=== PATIENT | female | born 1945 | race Caucasian/White ===

== ENCOUNTER 2017-09-21 08:02 | Inpatient (IN) | payer MEDICARE ==
[~2017-09-21] VITALS: Ht 170.2 cm; Wt 49.9 kg
[2017-09-21 08:05] VITALS: BP 154/92; PULSE 102; RESP 16; TEMP 98.5; O2SAT 99
[2017-09-21] MEDS ORDERED: VENL150T PO (08:24)
[2017-09-21] MEDS ORDERED: LORA0.5T PO (08:24)
[2017-09-21] MEDS ORDERED: MIRTA15 PO (08:24)
[2017-09-21] MEDS ORDERED: QUET1TAB8 PO (08:24)
--- NOTE | 2017-09-21 08:31 | PD ---
HPI Chief Complaint: Medical Clearance Time Seen by Provider: 08:10 Travel History International Travel<30 days: No Contact w/Intl Traveler<30days: No Traveled to known affect area: No History of Present Illness HPI The patient is a 72-year-old female who presents to the emergency department with her for psychiatric evaluation. The patient has a history of major depression with catatonia, started in the with another episode in the . According to the the patient did place a gun to her neck back in the , however, after treatment at that time she was well for several years. However, the patient's brother recently from possible alcoholism over the summer and she recently went to [place], [place], to see her daughter who is suffering from depression. These events apparently triggered another episode of major depression and the patient was hospitalized for psychiatric reasons in [place], [place]. The patient had a thorough workup according to the including CAT scan, thyroid studies, and lab work to rule out other etiologies. The patient was treated by a psychiatrist and was eventually released from the hospital. However, the states the patient continues to lose weight, has not been eating, sleeping, and is having delusions. The states the patient is delusional at times about the neighbor's pit bull dogs next-door as well as possible "hacking "into their bank and credit cards. The patient does believe that people are hacking her credit cards and also believes that the pit bulls next door are a threat. She does note trouble pain. Symptoms are moderate, similar to previous episodes of depression with catatonia, and there are no current alleviating factors. She denies current suicidal ideation, does know angry at times, but denies any homicidal ideation. She denies any auditory or visual hallucinations. PFSH Past Medical History Narrative Medical Major depression Past Surgical History Narrative Surgical Noncontributory Social History Tobacco Use: No Allergies-Medications (Allergen,Severity, Reaction): Coded Allergies: No Known Allergies (Verified Allergy, Unknown, 09/21/17) Reported Meds & Prescriptions Reported Meds & Active Scripts Active Reported Mirtazapine 15 Mg Tab 15 Mg PO HS Lorazepam 0.5 Mg Tab 0.5 Mg PO Q8H PRN Venlafaxine ER 24 HR (Venlafaxine HCl) 150 Mg Tab 150 Mg PO DAILY Quetiapine (Quetiapine Fumarate) 100 Mg Tab 100 Mg PO HS Review of Systems Except as stated in HPI: all other systems reviewed are Neg General / Constitutional: Positive: Weight Loss, No: Fever Cardiovascular: No: Chest Pain or Discomfort Respiratory: No: Shortness of Breath Gastrointestinal: Positive: Loss of Appetite, No: Nausea, Vomiting, Abdominal Pain Psychiatric: Positive: Depression, No: Suicidal Ideations, Substance Abuse, Homicidal Ideation Physical Exam Narrative GENERAL: 72-year-old female appears her stated age is in no acute respiratory distress. SKIN: Focused skin assessment warm/dry. HEAD: Atraumatic. Normocephalic. EYES: Pupils equal and round. 4 mm bilateral and reactive. Patient is wearing glasses. ENT: No nasal bleeding or discharge. Slightly dry mucous membranes.. NECK: Trachea midline. No JVD. CARDIOVASCULAR: Regular rate and rhythm. No murmur appreciated. Heart rate in the 90s. RESPIRATORY: No accessory muscle use. Clear to auscultation. Breath sounds equal bilaterally. GASTROINTESTINAL: Abdomen soft, non-tender, nondistended. No rebound tenderness. MUSCULOSKELETAL: No obvious deformities. No clubbing. No cyanosis. No edema. NEUROLOGICAL: Awake and alert. No obvious cranial nerve deficits. Motor grossly within normal limits. Normal speech. Nonfocal. PSYCHIATRIC: Flat affect, avoids eye contact. Insight and judgment appear normal. Data Data Last Documented VS Vital Signs Date Time Temp Pulse Resp B/P (MAP) Pulse Ox O2 Delivery O2 Flow Rate FiO2 09/21/17 08:05 98.5 102 16 154/92 (112) 99 Orders Orders Complete Blood Count With Diff (09/21/17 08:26) Comprehensive Metabolic Panel (09/21/17 08:26) Thyroid Stimulating Hormone (09/21/17 08:26) Urinalysis - C+S If Indicated (09/21/17 08:26) Psych Screen (09/21/17 08:26) Drug Screen, Random Urine (09/21/17 08:26) Labs Laboratory Tests Test 09/21/17 08:45 White Blood Count 2.9 TH/MM3 Red Blood Count 4.71 MIL/MM3 Hemoglobin 14.1 GM/DL Hematocrit 41.6 % Mean Corpuscular Volume 88.4 FL Mean Corpuscular Hemoglobin 29.9 PG Mean Corpuscular Hemoglobin Concent 33.8 % Red Cell Distribution Width 13.3 % Platelet Count 183 TH/MM3 Mean Platelet Volume 8.8 FL Neutrophils (%) (Auto) 67.2 % Lymphocytes (%) (Auto) 21.6 % Monocytes (%) (Auto) 9.4 % Eosinophils (%) (Auto) 1.1 % Basophils (%) (Auto) 0.7 % Neutrophils # (Auto) 2.0 TH/MM3 Lymphocytes # (Auto) 0.6 TH/MM3 Monocytes # (Auto) 0.3 TH/MM3 Eosinophils # (Auto) 0.0 TH/MM3 Basophils # (Auto) 0.0 TH/MM3 CBC Comment DIFF FINAL Differential Comment Blood Urea Nitrogen 10 MG/DL Creatinine 0.61 MG/DL Random Glucose 101 MG/DL Total Protein 6.8 GM/DL Albumin 3.6 GM/DL Calcium Level 9.0 MG/DL Alkaline Phosphatase 89 U/L Aspartate Amino Transf (AST/SGOT) 34 U/L Alanine Aminotransferase (ALT/SGPT) 24 U/L Total Bilirubin 0.5 MG/DL Sodium Level 141 MEQ/L Potassium Level 3.4 MEQ/L Chloride Level 105 MEQ/L Carbon Dioxide Level 24.4 MEQ/L Anion Gap 12 MEQ/L Estimat Glomerular Filtration Rate 97 ML/MIN Thyroid Stimulating Hormone 3rd Gen 2.880 uIU/ML MDM Medical Decision Making Medical Screen Exam Complete: Yes Emergency Medical Condition: Yes Medical Record Reviewed: Yes Interpretation(s) Laboratory Tests Test 09/21/17 08:45 White Blood Count 2.9 TH/MM3 Red Blood Count 4.71 MIL/MM3 Hemoglobin 14.1 GM/DL Hematocrit 41.6 % Mean Corpuscular Volume 88.4 FL Mean Corpuscular Hemoglobin 29.9 PG Mean Corpuscular Hemoglobin Concent 33.8 % Red Cell Distribution Width 13.3 % Platelet Count 183 TH/MM3 Mean Platelet Volume 8.8 FL Neutrophils (%) (Auto) 67.2 % Lymphocytes (%) (Auto) 21.6 % Monocytes (%) (Auto) 9.4 % Eosinophils (%) (Auto) 1.1 % Basophils (%) (Auto) 0.7 % Neutrophils # (Auto) 2.0 TH/MM3 Lymphocytes # (Auto) 0.6 TH/MM3 Monocytes # (Auto) 0.3 TH/MM3 Eosinophils # (Auto) 0.0 TH/MM3 Basophils # (Auto) 0.0 TH/MM3 CBC Comment DIFF FINAL Differential Comment Blood Urea Nitrogen 10 MG/DL Creatinine 0.61 MG/DL Random Glucose 101 MG/DL Total Protein 6.8 GM/DL Albumin 3.6 GM/DL Calcium Level 9.0 MG/DL Alkaline Phosphatase 89 U/L Aspartate Amino Transf (AST/SGOT) 34 U/L Alanine Aminotransferase (ALT/SGPT) 24 U/L Total Bilirubin 0.5 MG/DL Sodium Level 141 MEQ/L Potassium Level 3.4 MEQ/L Chloride Level 105 MEQ/L Carbon Dioxide Level 24.4 MEQ/L Anion Gap 12 MEQ/L Estimat Glomerular Filtration Rate 97 ML/MIN Thyroid Stimulating Hormone 3rd Gen 2.880 uIU/ML Differential Diagnosis Differential diagnosis includes major depression, psychosis, bipolar affective disorder, schizoaffective disorder, hyperthyroidism, hypothyroidism, dehydration. Narrative Course Labs are drawn and sent. Psychiatric evaluation was ordered. TSH was within normal limits. Sodium is unremarkable. The patient medically clear to be evaluated by psychiatry. Disposition as per psych. Diagnosis Primary Impression: Major depressive disorder Condition: Stable Darian Pulido MD Sep 21, 2017 08:31
[2017-09-21 09:00] LABS: BASOPHIL % 0.7 % (0.0-2.0); EOSINOPHIL % 1.1 % (0.0-4.0); HEMATOCRIT 41.6 % (35.0-46.0); HEMOGLOBIN 14.1 GM/DL (11.6-15.3); LYMPH % 21.6 % (9.0-44.0); LYMPHOCYTE # 0.6 TH/MM3 (1.0-4.8); MEAN CELL VOLUME 88.4 FL (80.0-100.0); MEAN CORPUSCULAR HEMOGLOBIN 29.9 PG (27.0-34.0); MEAN CORPUSCULAR HGB CONC 33.8 % (32.0-36.0); MEAN PLATELET VOLUME 8.8 FL (7.0-11.0); MONO % 9.4 % (0.0-8.0); MONOCYTE # 0.3 TH/MM3 (0-0.9); NEUT % 67.2 % (16.0-70.0); PLATELET COUNT 183 TH/MM3 (150-450); RED BLOOD COUNT 4.71 MIL/MM3 (4.00-5.30); RED CELL DISTRIBUTION WIDTH 13.3 % (11.6-17.2); WHITE BLOOD COUNT 2.9 TH/MM3 (4.0-11.0)
[2017-09-21 09:18] LABS: ALBUMIN 3.6 GM/DL (3.4-5.0); AST (GOT) 34 U/L (15-37); BICARBONATE 24.4 MEQ/L (21.0-32.0); BLOOD UREA NITROGEN 10 MG/DL (7-18); CHLORIDE 105 MEQ/L (98-107); CREATININE 0.61 MG/DL (0.50-1.00); GLOMERULAR FILTRATION RATE 97 ML/MIN (>89); GLUCOSE,RANDOM 101 MG/DL (74-106); SODIUM (NA) 141 MEQ/L (136-145)
[2017-09-21 09:19] LABS: ALT (GPT) 24 U/L (10-53)
[2017-09-21 09:28] LABS: ALKALINE PHOSPHATASE 89 U/L (45-117); TOTAL BILIRUBIN ADULT 0.5 MG/DL (0.2-1.0); TOTAL PROTEIN 6.8 GM/DL (6.4-8.2)
[2017-09-21] MEDS ORDERED: LORazepam 1 MG TAB PO PRN (10:00)
[2017-09-21] MEDS ORDERED: LORazepam 2 MG/ML VIAL IM PRN (10:00)
[2017-09-21] MEDS ORDERED: ALUMINUM/MAGNESIUM/SIMETH 30 ML CUP PO PRN (10:00)
[2017-09-21] MEDS ORDERED: ACETAMINOPHEN 325 MG TAB PO PRN (10:00)
[2017-09-21] MEDS ORDERED: MAGNESIUM HYDROXIDE SUSP 30 ML CUP PO PRN (10:00)
--- NOTE | 2017-09-21 10:34 | HHI.HP ---
Provisional Diagnosis Admission Date Sep 21, 2017 at 09:57 [place] I. Major depression with psychotic features Certification of Person's Competence To Provide Express and Informed Consent I have personally examined Nuris Gasca , a person being served at [facility] on, Sep 21, 2017 10:21. Express and informed consent means consent voluntarily given in writing, by a competent person, after sufficient explanation and disclosure of the subject matter involved to enable the person to make a knowing and willful decision without any element of force, fraud, deceit, duress, or other form of constraint or coercion. This person is 18 years of age or older, is not now known to be incompetent to consent to treatment with a guardian advocate, and does not have a health care surrogate or proxy currently making medical treatment decisions. I have found this person to be one of the following: [] Competent to provide express and informed consent, as defined above, for voluntary admission to this facility and is competent to provide express and informed consent for treatment. He/she has the consistent capacity to make well reasoned, willful, and knowing decisions concerning his or her medical or mental health treatment. The person fully and consistently understands the purpose of the admission for examination/placement and is fully capable of personally exercising all rights [place] [x] Incompetent to provide express and informed consent to voluntary admission, and this is incompetent to provide express and informed consent to treatment. The person must be transferred to involuntary status and a petition for a guardian advocate filed with the Circuit Court. [] Refusing to provide express and informed consent to voluntary admission but is competent to provide express and informed consent for treatment. The person must be discharged or transferred to involuntary status. Form shall be completed within 24 hours of a person's arrival at the receiving facility and filed in the clinical record of each person: 1. Admitted on a voluntary basis 2. Permitted to provide express and informed consent to his/her own treatment 3. Allowed to transfer from involuntary to voluntary status 4. Prior to permitting a person to consent to his or her own treatment after having been previously found incompetent to consent to treatment. History of Present Illness Capacity: Lacks Capacity HPI 72-year-old female Lee acted by this physician with obvious major depression and psychotic features. 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 He is aware of the patient's condition as they have been for 48 years and she required ECT approximately 25 years ago. Currently, the patient has experienced a 40 pound weight loss, is delusional and believes they have no money, no Medicare and someone has hacked their computer system. She does not eat food very well and does not drink much liquid. In addition to a markedly depressed mood, she has anxiety, anhedonia, social withdrawal, poverty of speech, insomnia, loss of appetite, concentration difficulty, etc. She is somewhat oppositional as a result of her depression with psychotic features and has even been described as approaching catatonia. She does not have a history of alcoholism or substance abuse. She has had multiple stressors in the last year, including a major depressive event with her daughter and the loss of her brother, while he resided in a homeless senior care. Review of Systems ROS Limitations: Clinical Condition Psychiatric: COMPLAINS OF: Anxiety, Mood changes, Delusions Except as stated in HPI: all other systems reviewed are Neg Past Psych History Psychological trauma history No known significant history of psychological trauma other than stressors described above. Has been treated for serious depressive episodes years ago, including the ECT. She did respond to electroconvulsive therapy. Violence risk - others (6 mos) Minimal Violence risk - self (6 mos) Moderate to high. Substance Abuse History Drugs/Alcohol past 12 months Denied Past Family Social History Coded Allergies: No Known Allergies (Verified Allergy, Unknown, 09/21/17) Reported Medications Mirtazapine (Mirtazapine) 15 Mg Tab, 15 MG PO HS for Depression Control, #30 TAB 0 Refills 09/21/17 Lorazepam (Lorazepam) 0.5 Mg Tab, 0.5 MG PO Q8H Y for ANXIETY, TAB 0 Refills 09/21/17 Venlafaxine ER 24 HR (Venlafaxine ER 24 HR) 150 Mg Tab, 150 MG PO DAILY, #30 TAB 0 Refills 09/21/17 Quetiapine (Quetiapine) 100 Mg Tab, 100 MG PO HS, #30 TAB 0 Refills 09/21/17 Current Medications Medications (Trade) Dose Ordered Sig/César Route Start Time Stop Time Status Last Admin (Ativan) 1 mg Q6H PRN PO 09/21/17 10:00 (Ativan Inj) 1 mg Q6H PRN IM 09/21/17 10:00 (Tylenol) 650 mg Q4H PRN PO 09/21/17 10:00 (Milk Of Magnesia Liq) 30 ml DAILY PRN PO 09/21/17 10:00 (Mag-Al Plus Susp Liq) 30 ml Q6H PRN PO 09/21/17 10:00 (Remeron) 15 mg HS PO 09/21/17 21:00 (SEROquel) 100 mg HS PO 09/21/17 21:00 Family Psych History Positive for mood disorders and possible bipolar disorder. Social History for 48 years. very supportive and knowledgeable about psychiatry as he has been [employer] act financial services director at this facility in the past. They have one daughter that lives in the [place] area who has experienced depressive episodes and they believe may be bipolar. Patient does not have a history of alcoholism or substance abuse. She is not employed at this time. Patient's Strengths (min. 2) Supportive family. Has access to healthcare. Physical Exam GENERAL: SKIN: Warm and dry. HEAD: Normocephalic. EYES: No scleral icterus. No injection or drainage. NECK: Supple, trachea midline. No JVD or lymphadenopathy. CARDIOVASCULAR: Regular rate and rhythm without murmurs, gallops, or rubs. RESPIRATORY: Breath sounds equal bilaterally. No accessory muscle use. GASTROINTESTINAL: Abdomen soft, non-tender, nondistended. MUSCULOSKELETAL: No cyanosis, or edema. BACK: Nontender without obvious deformity. No CVA tenderness. Vital Signs Vital Signs Date Time Temp Pulse Resp B/P (MAP) Pulse Ox O2 Delivery O2 Flow Rate FiO2 09/21/17 08:05 98.5 102 16 154/92 (112) 99 Lab Results Test 09/21/17 08:45 White Blood Count 2.9 TH/MM3 Red Blood Count 4.71 MIL/MM3 Hemoglobin 14.1 GM/DL Hematocrit 41.6 % Mean Corpuscular Volume 88.4 FL Mean Corpuscular Hemoglobin 29.9 PG Mean Corpuscular Hemoglobin Concent 33.8 % Red Cell Distribution Width 13.3 % Platelet Count 183 TH/MM3 Mean Platelet Volume 8.8 FL Neutrophils (%) (Auto) 67.2 % Lymphocytes (%) (Auto) 21.6 % Monocytes (%) (Auto) 9.4 % Eosinophils (%) (Auto) 1.1 % Basophils (%) (Auto) 0.7 % Neutrophils # (Auto) 2.0 TH/MM3 Lymphocytes # (Auto) 0.6 TH/MM3 Monocytes # (Auto) 0.3 TH/MM3 Eosinophils # (Auto) 0.0 TH/MM3 Basophils # (Auto) 0.0 TH/MM3 CBC Comment DIFF FINAL Differential Comment Blood Urea Nitrogen 10 MG/DL Creatinine 0.61 MG/DL Random Glucose 101 MG/DL Total Protein 6.8 GM/DL Albumin 3.6 GM/DL Calcium Level 9.0 MG/DL Alkaline Phosphatase 89 U/L Aspartate Amino Transf (AST/SGOT) 34 U/L Alanine Aminotransferase (ALT/SGPT) 24 U/L Total Bilirubin 0.5 MG/DL Sodium Level 141 MEQ/L Potassium Level 3.4 MEQ/L Chloride Level 105 MEQ/L Carbon Dioxide Level 24.4 MEQ/L Anion Gap 12 MEQ/L Estimat Glomerular Filtration Rate 97 ML/MIN Thyroid Stimulating Hormone 3rd Gen 2.880 uIU/ML Mental Status Examination Appearance: Other Consciousness: Alert Orientation: Person, Place Motor Activity: Normal gait Speech: Hesitant Language: Adequate Fund of Knowledge: Adequate Attention and Concentration: Inadequate Memory: Impaired Mood: Oppositional Affect: Blunt Thought Process & Associations: Circumstantial, Tangential Thought Content: Bizarre thinking, Delusional Hallucination Type: None Delusion Type: Paranoid Suicidal Ideation: No Suicidal Plan: No Suicidal Intention: No Homicidal Ideation: No Homicidal Plan: No Homicidal Intention: No Insight: Poor Judgment: Poor Assessment & Plan Problem List: (1) Major depressive disorder, recurrent episode with mood-congruent psychotic features ICD Codes: F33.3 - Major depressive disorder, recurrent, severe with psychotic symptoms Assessment & Plan Estimated LOS: days. 72-year-old female Lee acted by this physician for major depressive symptoms with psychotic delusions. Patient not eating or drinking adequately and has experienced 40 pound weight loss over the last year. She is obviously unable to care for herself and due to her advanced age, remains susceptible to electrolyte disturbances, cardiac dysrhythmias, sudden , etc. For this reason she is being admitted for further evaluation and treatment. Patient was also recently admitted to [facility] [place] with minimal to no improvement. This physician is ordering a CBC and comprehensive metabolic panel to determine if any infectious process or metabolic process is causing or contributing to the patient's depression and psychosis. Conversely, this physician is concerned about any electrolyte disturbances, etc. which might be the result of the patient's depression and psychosis. Also ordered are thyroid stimulating hormone level, vitamin B-12 and vitamin D levels as deficiencies in these areas can cause or contribute to the patient's depression and psychosis. This physician has also ordered a hospitalist consult to assist with evaluating and treating the patient's malnourished physical state. An EKG has been ordered to assess the patient's cardiac conduction status, which can be adversely affected by her lack of nutrition, psychotropic medicines, etc. and will possibly be at risk with the future use of psychotropic medicines. This physician spoke with the patient's nurse regarding her current condition. Finally, case management will also be involved to assist with further information gathering and disposition planning. Carroll Frederick MD Sep 21, 2017 10:34
[2017-09-21 11:14] VITALS: BP 145/76; PULSE 90; RESP 18; O2SAT 99
[2017-09-21 11:50] LABS: BILIRUBIN, URINE NEG (NEG); BLOOD, URINE NEG (NEG); GLUCOSE,URINE NEG (NEG); KETONE, URINE 40 mg/dL (NEG); MUCUS URINE FEW /lpf (OCC); NITRITE,URINE NEG (NEG); PH, URINE 7.5 (5.0-8.5); RENAL EPITHELIAL CELLS <1 /hpf; SQUAMOUS EPITHELIAL CELL URINE <1 /hpf (0-5); URINE COLOR LIGHT-YELLOW (YELLW/STRAW); URINE LEUKOCYTE ESTERASE NEG (NEG)
[2017-09-21 13:41] VITALS: BP 144/70; PULSE 79; RESP 18; TEMP 98.2; O2SAT 99
[2017-09-21] MEDS ORDERED: POTASSIUM CHLORIDE 20 MEQ CONTROLLED RELEASE TAB PO ONE (15:30)
--- NOTE | 2017-09-21 15:54 | PD.CONS ---
HPI Service [facility] Consult Requested By Psychiatry service Reason for Consult Poor by mouth intake weight loss Primary Care Physician No Primary Care Physician Diagnoses: History of Present Illness Patient is a 72-year-old female with questionable history of hypertension, depression was brought in here by and admitted under medicine like services because of depression. There is no family member at bedside. Patient appears blunted in affect. Review of ER report on admission evaluation reveals history of depression with previous history of suicidal attempt prior hospitalizations in other psychiatric facility. His admission recently triggered by few deaths in the family. On further discussion with the staff nurse was admitted in another facility a few weeks ago with depression and poor by mouth intake. There was a report about her being constipated. Apparently was manually disimpacted in other facility. When asked about this patient does not recall having had a colonoscopy done. She denies any abdominal pain nausea and vomiting. She just feels that she's being kept here against her will and this is "inhumane ". Patient denies any fever nausea or vomiting[facility] poor by mouth intake and weight loss. Review of Systems Constitutional: DENIES: Diaphoretic episodes, Fatigue, Fever, Weight gain, Weight loss, Chills, Dizziness, Change in appetite, Night Sweats Endocrine: DENIES: Abnorml menstrual pattern, Heat/cold intolerance, Polydipsia , Polyuria, Polyphagia Eyes: DENIES: Blurred vision, Diplopia, Eye inflammation, Eye pain, Vision loss , Photosensitivity, Double Vision Ears, nose, mouth, throat: DENIES: Tinnitus, Hearing loss, Vertigo, Nasal discharge, Oral lesions, Throat pain, Hoarseness, Ear Pain, Running Nose, Epistaxis, Sinus Pain, Toothache, Odynophagia Respiratory: DENIES: Apneas, Cough, Snoring, Wheezing, Hemoptysis, Sputum production, Shortness of breath Cardiovascular: DENIES: Chest pain, Palpitations, Syncope, Dyspnea on Exertion , PND, Lower Extremity Edema, Orthopnea, Claudication Gastrointestinal: COMPLAINS OF: Constipation Genitourinary: DENIES: Abnormal vaginal bleeding, Dysmenorrhea, Dyspareunia, Sexual dysfunction, Urinary frequency, Urinary incontinence, Urgency, Hematuria , Dysuria, Nocturia, Vaginal discharge Musculoskeletal: DENIES: Joint pain, Muscle aches, Stiffness, Joint Swelling, Back pain, Neck pain Integumentary: DENIES: Abnormal pigmentation, Pruritus, Rash, Nail changes, Breast masses, Breast skin changes, Nipple discharge Hematologic/lymphatic: DENIES: Bruising, Lymphadenopathy Immunologic/allergic: DENIES: Eczema, Urticaria Neurologic: DENIES: Abnormal gait, Headache, Localized weakness, Paresthesias, Seizures, Speech Problems, Tremor, Poor Balance Psychiatric: COMPLAINS OF: Depression Past Family Social History Allergies: Coded Allergies: No Known Allergies (Verified Allergy, Unknown, 09/21/17) Past Medical History Depression History of breast cancer in 1991 left lumpectomy Question questionable history of hypertension Past Surgical History Left lumpectomy for breast cancer in 1991 Reported Medications Currently. Remeron 15 mg at bedtime Seroquel 100 mg at bedtime Ativan when necessary Active Ordered Medications See EMR Family History Noncontributory Social History History of smoking quit many years ago occasionally uses EC Very occasional alcohol use Denies IV drug use Physical Exam Vital Signs Vital Signs Date Time Temp Pulse Resp B/P (MAP) Pulse Ox O2 Delivery O2 Flow Rate FiO2 09/21/17 13:41 98.2 79 18 144/70 (94) 99 09/21/17 13:21 09/21/17 11:14 90 18 145/76 (99) 99 Room Air 09/21/17 08:05 98.5 102 16 154/92 (112) 99 Physical Exam GENERAL awake alert oriented 3 blunt affect SKIN: No rashes, ecchymoses or lesions. Cool and dry. HEAD: Atraumatic. Normocephalic. No temporal or scalp tenderness. EYES: Pupils equal round and reactive. Extraocular motions intact. No scleral icterus. No injection or drainage. ENT: Nose without bleeding, purulent drainage or septal hematoma. Throat without erythema, tonsillar hypertrophy or exudate. Uvula midline. Airway patent. NECK: Trachea midline. No JVD or lymphadenopathy. Supple, nontender, no meningeal signs. CARDIOVASCULAR: Regular rate and rhythm without murmurs, gallops, or rubs. Breasts exam bilaterally fibrocystic on palpation. No axillary lymphadenopathy RESPIRATORY: Clear to auscultation. Breath sounds equal bilaterally. No wheezes , rales, or rhonchi. GASTROINTESTINAL: Abdomen soft, non-tender, nondistended. No hepato-splenomegaly , or palpable masses. No guarding. MUSCULOSKELETAL: Extremities without clubbing, cyanosis, or edema. No joint tenderness, effusion, or edema noted. No calf tenderness. Negative Homans sign bilaterally. Patient refused rectal exam NEUROLOGICAL: Awake and alert. Cranial nerves II through XII intact. Motor and sensory grossly within normal limits. Five out of 5 muscle strength in all muscle groups. Normal speech. Laboratory Laboratory Tests Test 09/21/17 08:45 09/21/17 09:50 White Blood Count 2.9 Red Blood Count 4.71 Hemoglobin 14.1 Hematocrit 41.6 Mean Corpuscular Volume 88.4 Mean Corpuscular Hemoglobin 29.9 Mean Corpuscular Hemoglobin Concent 33.8 Red Cell Distribution Width 13.3 Platelet Count 183 Mean Platelet Volume 8.8 Neutrophils (%) (Auto) 67.2 Lymphocytes (%) (Auto) 21.6 Monocytes (%) (Auto) 9.4 Eosinophils (%) (Auto) 1.1 Basophils (%) (Auto) 0.7 Neutrophils # (Auto) 2.0 Lymphocytes # (Auto) 0.6 Monocytes # (Auto) 0.3 Eosinophils # (Auto) 0.0 Basophils # (Auto) 0.0 CBC Comment DIFF FINAL Differential Comment Blood Urea Nitrogen 10 Creatinine 0.61 Random Glucose 101 Total Protein 6.8 Albumin 3.6 Calcium Level 9.0 Alkaline Phosphatase 89 Aspartate Amino Transf (AST/SGOT) 34 Alanine Aminotransferase (ALT/SGPT) 24 Total Bilirubin 0.5 Sodium Level 141 Potassium Level 3.4 Chloride Level 105 Carbon Dioxide Level 24.4 Anion Gap 12 Estimat Glomerular Filtration Rate 97 Thyroid Stimulating Hormone 3rd Gen 2.880 Urine Color LIGHT-YELLOW Urine Turbidity CLEAR Urine pH 7.5 Urine Specific [place] 1.005 Urine Protein NEG Urine Glucose (UA) NEG Urine Ketones 40 Urine Occult Blood NEG Urine Nitrite NEG Urine Bilirubin NEG Urine Urobilinogen LESS THAN 2.0 Urine Leukocyte Esterase NEG Urine RBC LESS THAN 1 Urine WBC LESS THAN 1 Urine Squamous Epithelial Cells <1 Urine Renal Epithelial Cells <1 Urine Mucus FEW Microscopic Urinalysis Comment CULT NOT INDICATED Urine Opiates Screen NEG Urine Barbiturates Screen NEG Urine Amphetamines Screen NEG Urine Benzodiazepines Screen NEG Urine Cocaine Screen NEG Urine Cannabinoids Screen NEG Result Diagram: 09/21/1745 09/21/1745 Assessment and Plan Assessment and Plan 72-year-old female presenting with Depression management per psychiatry Poor by mouth intake/reported weight loss. Constipation by report history of being manually disimpacted may be related to depression Abdominal exam is benign. Refused rectal exam today- will attempt tomorrow We'll request records from previous hospitalization from another facility regarding GI workup. Get territory representative consult for evaluation TSH normal Hypokalemia on labs Give by mouth potassium 1 and recheck in a.m. History of Left breast cancer s/p lumpectomy 1991 exam with bilateral fibrocystic masses OP Mammogram ff up Hypertension- by history- no meds-. monitor Leukopenia on labs. We'll recheck in a.m. Thank you for this consult to follow patient in-house with you Dejan Ibarra MD Sep 21, 2017 15:54
[2017-09-21 16:46] VITALS: BP 168/82; PULSE 66; RESP 16; TEMP 97.5; O2SAT 95
--- NOTE | 2017-09-21 16:54 | PD.PSY.CON ---
Provisional Diagnosis Admission Date Sep 21, 2017 at 09:57 [place]. Major depression with psychotic features History of Present Illness Service Psychiatry Consult Requested By Dr. Frederick Reason for Consult Second opinion petition Jesus garcia Primary Care Physician No Primary Care Physician HPI 72-year-old female Jesus acted by this physician with obvious major depression and psychotic features. 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 He is aware of the patient's condition as they have been for 48 years and she required ECT approximately 25 years ago. Currently, the patient has experienced a 40 pound weight loss, is delusional and believes they have no money, no Medicare and someone has hacked their computer system. She does not eat food very well and does not drink much liquid. In addition to a markedly depressed mood, she has anxiety, anhedonia, social withdrawal, poverty of speech, insomnia, loss of appetite, concentration difficulty, etc. She is somewhat oppositional as a result of her depression with psychotic features and has even been described as approaching catatonia. She does not have a history of alcoholism or substance abuse. She has had multiple stressors in the last year, including a major depressive event with her daughter and the loss of her brother, while he resided in a homeless fdc. 09/21/17 Above note dictated by Dr. Frederick reviewed and agreed with. Patient has been admitted to my service. Dr. Frederick is done first opinion petition supporting Jesus garcia. I have seen patients she is markedly depressed psychotic paranoid vigilant. Little insight. At this time she does meet Jesus criteria thus I'll call sign second opinion petition supporting Jesus garcia Past Family Social History Coded Allergies: No Known Allergies (Verified Allergy, Unknown, 09/21/17) Reported Medications Mirtazapine (Mirtazapine) 15 Mg Tab, 15 MG PO HS for Depression Control, #30 TAB 0 Refills 09/21/17 Lorazepam (Lorazepam) 0.5 Mg Tab, 0.5 MG PO Q8H Y for ANXIETY, TAB 0 Refills 09/21/17 Venlafaxine ER 24 HR (Venlafaxine ER 24 HR) 150 Mg Tab, 150 MG PO DAILY, #30 TAB 0 Refills 09/21/17 Quetiapine (Quetiapine) 100 Mg Tab, 100 MG PO HS, #30 TAB 0 Refills 09/21/17 Current Medications Medications (Trade) Dose Ordered Sig/César Route Start Time Stop Time Status Last Admin (Ativan) 1 mg Q6H PRN PO 09/21/17 10:00 (Ativan Inj) 1 mg Q6H PRN IM 09/21/17 10:00 (Tylenol) 650 mg Q4H PRN PO 09/21/17 10:00 (Milk Of Magnesia Liq) 30 ml DAILY PRN PO 09/21/17 10:00 (Mag-Al Plus Susp Liq) 30 ml Q6H PRN PO 09/21/17 10:00 (Remeron) 15 mg HS PO 09/21/17 21:00 (SEROquel) 100 mg HS PO 09/21/17 21:00 Patient's Strengths (min. 2) Supportive family. Has access to healthcare. Physical Exam Vital Signs Vital Signs Date Time Temp Pulse Resp B/P (MAP) Pulse Ox O2 Delivery O2 Flow Rate FiO2 09/21/17 16:46 97.5 66 16 168/82 (110) 95 09/21/17 11:14 Room Air Lab Results Test 09/21/17 08:45 09/21/17 09:50 White Blood Count 2.9 TH/MM3 Red Blood Count 4.71 MIL/MM3 Hemoglobin 14.1 GM/DL Hematocrit 41.6 % Mean Corpuscular Volume 88.4 FL Mean Corpuscular Hemoglobin 29.9 PG Mean Corpuscular Hemoglobin Concent 33.8 % Red Cell Distribution Width 13.3 % Platelet Count 183 TH/MM3 Mean Platelet Volume 8.8 FL Neutrophils (%) (Auto) 67.2 % Lymphocytes (%) (Auto) 21.6 % Monocytes (%) (Auto) 9.4 % Eosinophils (%) (Auto) 1.1 % Basophils (%) (Auto) 0.7 % Neutrophils # (Auto) 2.0 TH/MM3 Lymphocytes # (Auto) 0.6 TH/MM3 Monocytes # (Auto) 0.3 TH/MM3 Eosinophils # (Auto) 0.0 TH/MM3 Basophils # (Auto) 0.0 TH/MM3 CBC Comment DIFF FINAL Differential Comment Blood Urea Nitrogen 10 MG/DL Creatinine 0.61 MG/DL Random Glucose 101 MG/DL Total Protein 6.8 GM/DL Albumin 3.6 GM/DL Calcium Level 9.0 MG/DL Alkaline Phosphatase 89 U/L Aspartate Amino Transf (AST/SGOT) 34 U/L Alanine Aminotransferase (ALT/SGPT) 24 U/L Total Bilirubin 0.5 MG/DL Sodium Level 141 MEQ/L Potassium Level 3.4 MEQ/L Chloride Level 105 MEQ/L Carbon Dioxide Level 24.4 MEQ/L Anion Gap 12 MEQ/L Estimat Glomerular Filtration Rate 97 ML/MIN Thyroid Stimulating Hormone 3rd Gen 2.880 uIU/ML Urine Color LIGHT-YELLOW Urine Turbidity CLEAR Urine pH 7.5 Urine Specific [place] 1.005 Urine Protein NEG mg/dL Urine Glucose (UA) NEG mg/dL Urine Ketones 40 mg/dL Urine Occult Blood NEG Urine Nitrite NEG Urine Bilirubin NEG Urine Urobilinogen LESS THAN 2.0 MG/DL Urine Leukocyte Esterase NEG Urine RBC LESS THAN 1 /hpf Urine WBC LESS THAN 1 /hpf Urine Squamous Epithelial Cells <1 /hpf Urine Renal Epithelial Cells <1 /hpf Urine Mucus FEW /lpf Microscopic Urinalysis Comment CULT NOT INDICATED Urine Opiates Screen NEG Urine Barbiturates Screen NEG Urine Amphetamines Screen NEG Urine Benzodiazepines Screen NEG Urine Cocaine Screen NEG Urine Cannabinoids Screen NEG Mental Status Examination Appearance: Other Consciousness: Alert Orientation: Person, Place Motor Activity: Normal gait Speech: Hesitant Language: Adequate Fund of Knowledge: Adequate Attention and Concentration: Inadequate Memory: Impaired Mood: Oppositional Affect: Blunt Thought Process & Associations: Circumstantial, Tangential Thought Content: Bizarre thinking, Delusional Hallucination Type: None Delusion Type: Paranoid Suicidal Ideation: No Suicidal Plan: No Suicidal Intention: No Homicidal Ideation: No Homicidal Plan: No Homicidal Intention: No Insight: Poor Judgment: Poor Assessment & Plan Problem List: (1) Major depressive disorder, recurrent episode with mood-congruent psychotic features ICD Codes: F33.3 - Major depressive disorder, recurrent, severe with psychotic symptoms Assessment & Plan Estimated LOS: Eriberto Crook MD Sep 21, 2017 16:54
[2017-09-21] MEDS: QUEtiapine FUMARATE 100 MG TAB PO SCH (21:26)
[2017-09-21] MEDS: MIRTAZAPINE 15 MG TAB PO SCH (21:26)
[2017-09-22 06:42] VITALS: BP 128/70; PULSE 70; RESP 15; TEMP 97.3; O2SAT 97
--- NOTE | 2017-09-22 08:58 | HHI.PYPN ---
Subjective Remarks Patient seen for follow-up, chart review. Patient was found lying in hospital bed noted to be superficially cooperative and guarded with interview today. Patient states she is "freaking out being here". Patient states that if she feels like she is in a correction although reminded that she is in hospital. Patient states that she does not know what's happening, stating that she is in hospital because she was not eating but had been taking her medications. Currently she reports feeling "awful" and mentioned that she just wanted to be in the dark. Patient continues to report feeling depressed, admitted to having suicidal ideations in the past at this time was not able to confirm or deny having suicidal ideations at this moment. Patient refused to continue interview today. He stated that she did not want to continue talk about it. Review of Systems Except as stated in HPI: all other systems reviewed are Neg Mental Status Examination Appearance: Other Consciousness: Alert Orientation: Person, Place Motor Activity: Normal gait Speech: Hesitant Language: Adequate Fund of Knowledge: Adequate Attention and Concentration: Inadequate Memory: Impaired Mood: Sad, Oppositional Affect: Sad, Blunt, Other (dysphoric) Thought Process & Associations: Circumstantial, Tangential Thought Content: Bizarre thinking, Delusional Hallucination Type: None Delusion Type: Paranoid Suicidal Ideation: No Suicidal Plan: No Suicidal Intention: No Homicidal Ideation: No Homicidal Plan: No Homicidal Intention: No Insight: Poor Judgment: Poor Results Labs Labs reviewed Test 09/21/17 09:50 Urine Color LIGHT-YELLOW Urine Turbidity CLEAR Urine pH 7.5 Urine Specific [place] 1.005 Urine Protein NEG mg/dL Urine Glucose (UA) NEG mg/dL Urine Ketones 40 mg/dL Urine Occult Blood NEG Urine Nitrite NEG Urine Bilirubin NEG Urine Urobilinogen LESS THAN 2.0 MG/DL Urine Leukocyte Esterase NEG Urine RBC LESS THAN 1 /hpf Urine WBC LESS THAN 1 /hpf Urine Squamous Epithelial Cells <1 /hpf Urine Renal Epithelial Cells <1 /hpf Urine Mucus FEW /lpf Microscopic Urinalysis Comment CULT NOT INDICATED Urine Opiates Screen NEG Urine Barbiturates Screen NEG Urine Amphetamines Screen NEG Urine Benzodiazepines Screen NEG Urine Cocaine Screen NEG Urine Cannabinoids Screen NEG Vitals/IOs Vital Signs Date Time Temp Pulse Resp B/P (MAP) Pulse Ox O2 Delivery O2 Flow Rate FiO2 09/22/17 06:42 97.3 70 15 128/70 (89) 97 09/21/17 11:14 Room Air Intake and Output 09/22/17 09/22/17 09/23/17 08:00 16:00 00:00 Intake Total 240 ml Balance 240 ml Assessment & Plan Problem List: (1) Major depressive disorder, recurrent episode with mood-congruent psychotic features ICD Codes: F33.3 - Major depressive disorder, recurrent, severe with psychotic symptoms Assessment & Plan She at this time continues to report feeling depressed, although did not admit to having suicidal ideations was noted to be anhedonic, very dysphoric, and appears to require encouragement for ADLs. Recurrent year for now. Continue to monitor mood and behavior. Continue to encourage patient to participate in groups and activities and maintenance of personal hygiene along with nutritional intake. Discharge planning in progress Justification for Cont. Inpt. At risk for further decompensation if at lower level of care Discharge Planning To be discharged back to her residence 1 psychiatrically stable Devendra العراقي MD Sep 22, 2017 08:58
[2017-09-22] MEDS ORDERED: POTASSIUM CHLORIDE 20 MEQ CONTROLLED RELEASE TAB PO ONE (13:30)
[2017-09-22] MEDS: DOCUSATE SODIUM 100 MG CAP PO SCH ×2 (13:30→21:00)
--- NOTE | 2017-09-22 13:39 | HHI.PR ---
Subjective Remarks still withdrawn speech soft denies any abdominal pain appetite- ate 1/2 only of breakfast Objective Vitals Vital Signs Date Time Temp Pulse Resp B/P (MAP) Pulse Ox O2 Delivery O2 Flow Rate FiO2 09/22/17 06:42 97.3 70 15 128/70 (89) 97 09/21/17 16:46 97.5 66 16 168/82 (110) 95 09/21/17 13:41 98.2 79 18 144/70 (94) 99 I/O 09/21/17 09/21/17 09/21/17 09/22/17 09/22/17 09/22/17 07:00 15:00 23:00 07:00 15:00 23:00 Intake Total 240 ml 480 ml Balance 240 ml 480 ml Intake Oral 240 ml 480 ml Result Diagram: 09/21/17 0845 09/21/17 0845 Objective Remarks awake and alert, withdrawn affect anciteric lungs- no rales regular rhythm abdomen soft, nontender extremitie no edema gait steady A/P Assessment and Plan 72-year-old female presenting with Depression management per psychiatry Poor by mouth intake/reported weight loss. Constipation by report history of being manually disimpacted per on a regimen of MOM at and colace Abdominal exam is benign. Refused rectal exam We'll request records from previous hospitalization from another facility regarding GI workup.- still working on it Off Track Betting Manager consulted for recommendation TSH normal Ensure tid Hypokalemia on labs Give by mouth potassium 1 and recheck in a.m. - patient refused lab draw - d /w staff History of Left breast cancer s/p lumpectomy 1991 exam with bilateral fibrocystic masses OP Mammogram ff up Hypertension- by history- no meds-. monitor Leukopenia on labs. We'll recheck in a.m. Dejan Ibarra MD Sep 22, 2017 13:39
--- NOTE | 2017-09-22 15:29 | EKG ---
Date Performed: 09/21/2017 Time Performed: 11:02:01 PTAGE: 72 years EKG: Sinus rhythm MARKED LEFT AXIS DEVIATION ABNORMAL ECG NO PREVIOUS TRACING DOCTOR: Eric Tsai Interpretating Date/Time 09/22/2017 15:28:43
[2017-09-22] MEDS: MAGNESIUM HYDROXIDE SUSP 30 ML CUP PO SCH (21:00)
[2017-09-22] MEDS: MIRTAZAPINE 15 MG TAB PO SCH (21:00)
[2017-09-22] MEDS: QUEtiapine FUMARATE 100 MG TAB PO SCH (21:00)
[2017-09-23 06:00] VITALS: BP 176/96; PULSE 106; RESP 17; TEMP 98.1; O2SAT 98
[2017-09-23] MEDS: DOCUSATE SODIUM 100 MG CAP PO SCH ×2 (07:33→21:00)
--- NOTE | 2017-09-23 10:08 | HHI.PYPN ---
Subjective Remarks Patient seen for follow-up, chart reviewed. Discussion she staff reported the patient refused by mouth meds this morning had eating some of her meals yesterday but refused dinner. Patient had been visited by her yesterday but was noted to be pacing and neck since eating yesterday along with paranoid ideations. Patient found sitting in hospital bed noted to be superficially cooperative but engaging and in interacting more throughout interview. Patient states that she has some difficulty with sleeping last evening, admitted to not taking her medications last in which she was encouraged and agreed to. Patient reports continuing to feel depressed but denies any SI at this time. Patient was able talk about her family to some extent today. Patient agreed to take medications as well as attempting to eat more her meals along with allowing blood to be drawn. Review of Systems Except as stated in HPI: all other systems reviewed are Neg Mental Status Examination Appearance: Other Consciousness: Alert Orientation: Person, Place Motor Activity: Normal gait Speech: Hesitant Language: Adequate Fund of Knowledge: Adequate Attention and Concentration: Inadequate Memory: Impaired Mood: Sad Affect: Sad, Blunt, Other (dysphoric) Thought Process & Associations: Linear, Other (concrete) Thought Content: Bizarre thinking, Delusional Hallucination Type: None Delusion Type: Paranoid Suicidal Ideation: No Suicidal Plan: No Suicidal Intention: No Homicidal Ideation: No Homicidal Plan: No Homicidal Intention: No Insight: Poor Judgment: Poor Results Vitals/IOs Vital Signs Date Time Temp Pulse Resp B/P (MAP) Pulse Ox O2 Delivery O2 Flow Rate FiO2 09/23/17 06:00 98.1 106 17 176/96 (122) 98 09/21/17 11:14 Room Air Intake and Output 09/23/17 09/23/17 09/24/17 08:00 16:00 00:00 Intake Total 0 ml Balance 0 ml Assessment & Plan Problem List: (1) Major depressive disorder, recurrent episode with mood-congruent psychotic features ICD Codes: F33.3 - Major depressive disorder, recurrent, severe with psychotic symptoms Assessment & Plan Patient this time continues to be noted to be very dysphoric, depressed, psychomotor retardation superficially cooperative interview. Patient continues to refuse to have adequate additional intake and refused to elaborate this morning. Patient agreed to have it done. Continue recommendations as per primary medical team. Continue to encourage patient to comply with medications. Continue encouraged to maintain personal hygiene. Discharge planning in progress Justification for Cont. Inpt. At risk for further decompensation if at lower level of care Discharge Planning Patient to return back to her residence once psychiatrically and medically stable Devendra العراقي MD Sep 23, 2017 10:08
[2017-09-23] MEDS ORDERED: LORazepam 2 MG/ML VIAL IM ONE (13:00)
[2017-09-23 13:41] LABS: HEMATOCRIT 45.1 % (35.0-46.0); HEMOGLOBIN 15.2 GM/DL (11.6-15.3); MEAN CELL VOLUME 88.9 FL (80.0-100.0); MEAN CORPUSCULAR HEMOGLOBIN 29.9 PG (27.0-34.0); MEAN CORPUSCULAR HGB CONC 33.7 % (32.0-36.0); MEAN PLATELET VOLUME 8.6 FL (7.0-11.0); PLATELET COUNT 192 TH/MM3 (150-450); RED BLOOD COUNT 5.07 MIL/MM3 (4.00-5.30); RED CELL DISTRIBUTION WIDTH 13.2 % (11.6-17.2); WHITE BLOOD COUNT 5.8 TH/MM3 (4.0-11.0)
[2017-09-23 14:12] LABS: BICARBONATE 24.1 MEQ/L (21.0-32.0); CALCIUM 9.4 MG/DL (8.5-10.1); CREATININE 0.79 MG/DL (0.50-1.00)
--- NOTE | 2017-09-23 14:44 | HHI.PR ---
Subjective Remarks sat and spent some time with her talking responding more and smiled and laughed while talking- she was abkle to eat and consume a cup of ice cream with no nausea or vomitingf no pain complains Objective Vitals Vital Signs Date Time Temp Pulse Resp B/P (MAP) Pulse Ox O2 Delivery O2 Flow Rate FiO2 09/23/17 06:00 98.1 106 17 176/96 (122) 98 I/O 09/22/17 09/22/17 09/22/17 09/23/17 09/23/17 09/23/17 07:00 15:00 23:00 07:00 15:00 23:00 Intake Total 480 ml 0 ml 0 ml Balance 480 ml 0 ml 0 ml Intake Oral 480 ml 0 ml 0 ml # Voids 1 1 Result Diagram: 09/23/17 1330 09/23/17 1330 Objective Remarks awake and alert, smiled and spoke more today anicteric lungs- no rales regular rhythm abdomen soft, nontender extremities no edema gait steady A/P Assessment and Plan 72-year-old female presenting with Depression management per psychiatry Poor by mouth intake/reported weight loss. Constipation by report history of being manually disimpacted per on a regimen of MOM at and colace Abdominal exam is benign. We'll request records from previous hospitalization from another facility regarding GI workup.- still working on it Dry Wall Sprayer consulted for recommendation TSH normal Ensure tid Hypokalemia - resolved History of Left breast cancer s/p lumpectomy 1991 exam with bilateral fibrocystic masses OP Mammogram ff up Hypertension- by history- no meds-. monitor- good yesterday- recheck now- d/w staff can be from psychiatric condition- -patient very guarded continue to monitor for now clondine prn if SBP >170 Leukopenia - improved Patient up and ambulating Dejan Ibarra MD Sep 23, 2017 14:44
[2017-09-23 14:55] VITALS: BP 162/87; PULSE 98; RESP 16; O2SAT 100
[2017-09-23] MEDS ORDERED: cloNIDine HCL 0.1 MG TAB PO PRN (15:00)
[2017-09-23 18:52] VITALS: BP 175/85; PULSE 101; RESP 16; TEMP 98.1; O2SAT 97
[2017-09-23] MEDS: MIRTAZAPINE 15 MG TAB PO SCH (21:00)
[2017-09-23] MEDS: QUEtiapine FUMARATE 100 MG TAB PO SCH (21:00)
[2017-09-23] MEDS: MAGNESIUM HYDROXIDE SUSP 30 ML CUP PO SCH (21:00)
[2017-09-23] MEDS: LORazepam 1 MG TAB PO SCH (22:00)
[2017-09-24 06:00] VITALS: BP 112/62; PULSE 79; RESP 16; O2SAT 93
[2017-09-24] MEDS: LORazepam 1 MG TAB PO SCH ×3 (06:00→21:10)
[2017-09-24] MEDS: DOCUSATE SODIUM 100 MG CAP PO SCH ×2 (09:00→21:10)
[2017-09-24] MEDS ORDERED: hydrOXYzine HCL 50 MG TAB PO PRN (11:45)
--- NOTE | 2017-09-24 11:54 | HHI.PYPN ---
Subjective Remarks Met with patient's , counselor makenna, nurse saida, chi his 's long history of depression including 2 courses of ECT in the . Long remission of significant depression until stressed this past year with their daughter going through a depression and divorce and then the of patient's younger brother while being homeless. The this year the patient's isolation withdrawal at times resistance a reluctance to take medications, were eating habits. He states the best results she had were after the ECT. He states she would on multiple antidepressants some for further long time with just maintenance type improvement. Discussed various treatment options. does state she did well with doses of Ativan which would be understandable with a diagnosis of catatonic features and his . Thus I will increase the Ativan to 1.5 mg every 8 hours. He will increase the Remeron to 30 mg at at bedtime, did state that she had been on Remeron for about 2 weeks prior to this time. Also discussed in some detail ECT in the process to get approval of this through the [place] court hearings. He has also research the possibility of her referral to [facility] for ECT. I will attempt to initiate the ECT referral at this time After meeting with the I did meet the patient nurse Saida present throughout session. Patient continues somewhat confused paranoid feelings she is imprisonment. She is confused also as to her location. When I attempted to discuss her history of depression she ignored me and started talking to the nurse. See medication adjustments above Review of Systems Except as stated in HPI: all other systems reviewed are Neg Mental Status Examination Appearance: Other Consciousness: Alert Orientation: Person, Place Motor Activity: Normal gait Speech: Hesitant Language: Adequate Fund of Knowledge: Adequate Attention and Concentration: Inadequate Memory: Impaired Mood: Sad Affect: Blunt, Other (dysphoric) Thought Process & Associations: Linear, Other (concrete) Thought Content: Bizarre thinking, Delusional Hallucination Type: None Delusion Type: Paranoid Suicidal Ideation: No Suicidal Plan: No Suicidal Intention: No Homicidal Ideation: No Homicidal Plan: No Homicidal Intention: No Insight: Poor Judgment: Poor Results Labs Test 09/23/17 13:30 White Blood Count 5.8 TH/MM3 Red Blood Count 5.07 MIL/MM3 Hemoglobin 15.2 GM/DL Hematocrit 45.1 % Mean Corpuscular Volume 88.9 FL Mean Corpuscular Hemoglobin 29.9 PG Mean Corpuscular Hemoglobin Concent 33.7 % Red Cell Distribution Width 13.2 % Platelet Count 192 TH/MM3 Mean Platelet Volume 8.6 FL Blood Urea Nitrogen 22 MG/DL Creatinine 0.79 MG/DL Random Glucose 108 MG/DL Calcium Level 9.4 MG/DL Sodium Level 141 MEQ/L Potassium Level 4.1 MEQ/L Chloride Level 107 MEQ/L Carbon Dioxide Level 24.1 MEQ/L Anion Gap 10 MEQ/L Estimat Glomerular Filtration Rate 72 ML/MIN Vitals/IOs Vital Signs Date Time Temp Pulse Resp B/P (MAP) Pulse Ox O2 Delivery O2 Flow Rate FiO2 09/23/17 18:52 98.1 101 16 175/85 (115) 97 09/21/17 11:14 Room Air Intake and Output 09/24/17 09/24/17 09/25/17 08:00 16:00 00:00 Intake Total 240 ml Balance 240 ml Assessment & Plan Problem List: (1) Major depressive disorder, recurrent episode with mood-congruent psychotic features ICD Codes: F33.3 - Major depressive disorder, recurrent, severe with psychotic symptoms Assessment & Plan Estimated LOS: days patient remains depressed and somewhat psychotic and delusional, C medication adjustments. We'll also start process for ECT referral. Justification for Cont. Inpt. At this time patient will decompensate then placed a lower level of care Discharge Planning Return home with family Eriberto Kat MD Sep 24, 2017 11:54
--- NOTE | 2017-09-24 12:18 | HHI.PR ---
Subjective Remarks patient is more interactive and coming out and ambulating outside of her room but now thinks she is in "half-way" "I don't understand why - all these painting are on the wall?" "Police is starting to comd for me now" po 100 % no nause or vomiting - Objective Vitals Vital Signs Date Time Temp Pulse Resp B/P (MAP) Pulse Ox O2 Delivery O2 Flow Rate FiO2 09/23/17 18:52 98.1 101 16 175/85 (115) 97 09/23/17 14:55 98 16 162/87 (112) 100 I/O 09/23/17 09/23/17 09/23/17 09/24/17 09/24/17 09/24/17 07:00 15:00 23:00 07:00 15:00 23:00 Intake Total 0 ml 960 ml 240 ml Balance 0 ml 960 ml 240 ml Intake Oral 0 ml 960 ml 240 ml # Voids 1 1 1 Result Diagram: 09/23/17 1330 09/23/17 1330 Objective Remarks awake and alert, today appears very frustrated, speech clear and spontaneous anicteric lungs- no rales regular rhythm abdomen soft, nontender extremities no edema gait steady A/P Assessment and Plan 72-year-old female presenting with Depression - now appears paranoid- "there is a news blackout" "I thinks police are out to get me" "freakd out" management per psychiatry- plan for EVT Poor by mouth intake/reported weight loss. 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 monitor- - related to mood can be from psychiatric condition- -patient very guarded continue to monitor for now clondine prn if SBP >170 Leukopenia - improved Patient up and ambulating Dejan Ibarra MD Sep 24, 2017 12:18
[2017-09-24 18:00] VITALS: BP 120/62; PULSE 74; RESP 18; TEMP 97.6; O2SAT 97
[2017-09-24] MEDS: MIRTAZAPINE 15 MG TAB PO SCH (21:09)
[2017-09-24] MEDS: QUEtiapine FUMARATE 100 MG TAB PO SCH (21:10)
[2017-09-24] MEDS: MAGNESIUM HYDROXIDE SUSP 30 ML CUP PO SCH (21:10)
[2017-09-25 05:40] VITALS: BP 93/55; PULSE 75; RESP 15; TEMP 97.6
[2017-09-25] MEDS: LORazepam 1 MG TAB PO SCH ×3 (06:00→22:00)
[2017-09-25] MEDS: DOCUSATE SODIUM 100 MG CAP PO SCH ×2 (09:00→22:00)
--- NOTE | 2017-09-25 09:35 | HHI.PR ---
Subjective Remarks Patient seen and examined, Did no want to interact with Jean Carlos this a.m., no acute event overnight Vitals stable Objective Vitals Vital Signs Date Time Temp Pulse Resp B/P (MAP) Pulse Ox O2 Delivery O2 Flow Rate FiO2 09/25/17 05:40 97.6 75 15 93/55 (68) 09/24/17 18:00 97.6 74 18 120/62 (81) 97 I/O 09/24/17 09/24/17 09/24/17 09/25/17 09/25/17 09/25/17 07:00 15:00 23:00 07:00 15:00 23:00 Intake Total 240 ml 480 ml 480 ml 0 ml Balance 240 ml 480 ml 480 ml 0 ml Intake Oral 240 ml 480 ml 480 ml 0 ml # Voids 1 3 2 # Bowel Movements 1 Result Diagram: 09/23/17 1330 09/23/17 1330 Objective Remarks GENERAL: NAD SKIN: Warm and dry. HEAD: Normocephalic. EYES: No scleral icterus. No injection or drainage. NECK: Supple, trachea midline. No JVD or lymphadenopathy. CARDIOVASCULAR: Regular rate and rhythm without murmurs, gallops, or rubs. RESPIRATORY: Breath sounds equal bilaterally. No accessory muscle use. GASTROINTESTINAL: Abdomen soft, non-tender, nondistended. MUSCULOSKELETAL: No cyanosis, or edema. BACK: Nontender without obvious deformity. No CVA tenderness. A/P Assessment and Plan 72-year-old female presenting with Depression - now appears paranoid management per psychiatry Poor by mouth intake/reported weight loss. 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 continue to monitor for now clonidine prn if SBP >170 Leukopenia - improved Patient up and ambulating Devendra Colmenares MD Sep 25, 2017 09:35
--- NOTE | 2017-09-25 10:13 | HHI.PYPN ---
Subjective Remarks Patient seen in her room with the floor staff. Chart reviewed. Patient compliant medications though with some encouragement. Patient still markedly anhedonic withdrawn her responses are whispered brief, the continues paranoid and guardedness she still feels that she is in [facility]. Process is some vague feelings of confusion as to what occurred and why she is here. Patient is scheduled for [facility] on 09/27. I also feel after discussion with her in reviewing her long history of depression and a positive response to ECT that ECT might be the most efficient appropriate treatment for this lady thus I'll start the ECT referral through [facility] also Review of Systems Except as stated in HPI: all other systems reviewed are Neg Mental Status Examination Appearance: Other Consciousness: Alert Orientation: Person, Place Motor Activity: Normal gait Speech: Hesitant, Slow, Other (whispering brief) Language: Adequate Fund of Knowledge: Adequate Attention and Concentration: Inadequate Memory: Impaired Mood: Sad Affect: Blunt, Other (dysphoric) Thought Process & Associations: Linear, Other (concrete) Thought Content: Bizarre thinking, Delusional Hallucination Type: None Delusion Type: Paranoid Suicidal Ideation: No Suicidal Plan: No Suicidal Intention: No Homicidal Ideation: No Homicidal Plan: No Homicidal Intention: No Insight: Poor Judgment: Poor Results Vitals/IOs Vital Signs Date Time Temp Pulse Resp B/P (MAP) Pulse Ox O2 Delivery O2 Flow Rate FiO2 09/25/17 05:40 97.6 75 15 93/55 (68) 09/24/17 18:00 97 09/21/17 11:14 Room Air Intake and Output 09/25/17 09/25/17 09/26/17 08:00 16:00 00:00 Intake Total 0 ml Balance 0 ml Assessment & Plan Problem List: (1) Major depressive disorder, recurrent episode with mood-congruent psychotic features ICD Codes: F33.3 - Major depressive disorder, recurrent, severe with psychotic symptoms Assessment & Plan Estimated LOS: days patient remains markedly depressed psychotic and anhedonic. Patient scheduled for [facility] 09/27, will start ECT recommendation forms for [facility] also Justification for Cont. Inpt. This time patient decompensated placed on lower level of care Discharge Planning This is being determined at this time possibility of referral to a facility that does inpatient ECT Eriberto Kat MD Sep 25, 2017 10:13
--- NOTE | 2017-09-25 13:00 | PD.PSY.CON ---
Provisional Diagnosis Admission Date Sep 21, 2017 at 09:57 [place] I. 1. Major depressive disorder, recurrent, severe with psychotic features [place] II. Deferred History of Present Illness Service Psychiatry Consult Requested By Dr. Kat Reason for Consult Second opinion for extraordinary treatment, namely ECT. Primary Care Physician No Primary Care Physician HPI From Dr. Frederick's H&P: 72-year-old female Jesus acted by this physician with obvious major depression and psychotic features. 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 He is aware of the patient's condition as they have been for 48 years and she required ECT approximately 25 years ago. Currently, the patient has experienced a 40 pound weight loss, is delusional and believes they have no money, no Medicare and someone has hacked their computer system. She does not eat food very well and does not drink much liquid. In addition to a markedly depressed mood, she has anxiety, anhedonia, social withdrawal, poverty of speech, insomnia, loss of appetite, concentration difficulty, etc. She is somewhat oppositional as a result of her depression with psychotic features and has even been described as approaching catatonia. She does not have a history of alcoholism or substance abuse. She has had multiple stressors in the last year, including a major depressive event with her daughter and the loss of her brother, while he resided in a homeless [place] [facility]. On my examination today, 09/25: Patient seen and examined with nurse. Chart reviewed. I see appended to the paper chart a letter from patient's detailing patient's recent illness course. I also note a request for records from a hospital in [place], although these records are not presently available for my review. Case discussed with nursing staff. On my examination today, patient presents as dysphoric, fretful and delusional. She appears to be consumed by ego-syntonic delusions of financial ruin. She believes for example, and without evidence, that her insurance has been cancelled and that her financial materials were "hacked" and so she is now destitute. She exhibits a preoccupation with cleanliness and believes that she is in some way unclean. The nurse brings to my attention that the patient has been wringing her hands so frequently to try to wipe off this uncleanness that she has caused sores to form on her hands. She seems to exhibit a somatic preoccupation more generally, and in particular is overly concerned about the function or lack thereof of her bowels. She is worried that her is planning to divorce her. Nurse reports that there were several medical emergencies involving other patients on the unit over the weekend, and patient is convinced that she is to blame for these. Mood is "scared," and affect is quite anxious and dysphoric. Sleep and appetite are poor, and I note that she has reportedly had a significant weight loss of late. She is anhedonic. No hypomanic/manic symptoms noted. No AVH. No SI/HI voiced. Remainder of the psychiatric ROS is negative. Past psychiatric history: The patient reports a history of major depressive disorder. She follows psychiatrically with a Dr. Breen. She has received ECT treatments in the past, although she cannot recall the number or how long ago these were done. She apparently most recently was prescribed Effexor. She is unable in her present state to describe previous medication trials when asked. She was psychiatrically admitted most recently at a facility in [place]. She endorses a history of previous suicide attempts by overdose and also by placing her head in a gas oven. Family history: Patient reports that her mother completed suicide. Chemical dependency history: The patient reports that she has a history of social drinking. She denies any heavier drinking or other substance use. Social history: Patient is with 2 daughters. She is college educated. 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 She denies any or legal history. She denies any access to guns or firearms. Review of Systems ROS Limitations: Psychotic, Poor Historian Except as stated in HPI: all other systems reviewed are Neg Past Family Social History Coded Allergies: No Known Allergies (Verified Allergy, Unknown, 09/21/17) Past Medical History See EMR. Denies dental problems besides some crowns. Denies osteoporotic changes. Reported Medications Mirtazapine (Mirtazapine) 15 Mg Tab, 15 MG PO HS for Depression Control, #30 TAB 0 Refills 09/21/17 Lorazepam (Lorazepam) 0.5 Mg Tab, 0.5 MG PO Q8H Y for ANXIETY, TAB 0 Refills 09/21/17 Venlafaxine ER 24 HR (Venlafaxine ER 24 HR) 150 Mg Tab, 150 MG PO DAILY, #30 TAB 0 Refills 09/21/17 Quetiapine (Quetiapine) 100 Mg Tab, 100 MG PO HS, #30 TAB 0 Refills 09/21/17 Current Medications Medications (Trade) Dose Ordered Sig/César Route Start Time Stop Time Status Last Admin (Ativan) 1 mg Q6H PRN PO 09/21/17 10:00 (Ativan Inj) 1 mg Q6H PRN IM 09/21/17 10:00 (Tylenol) 650 mg Q4H PRN PO 09/21/17 10:00 (Mag-Al Plus Susp Liq) 30 ml Q6H PRN PO 09/21/17 10:00 (SEROquel) 100 mg HS PO 09/21/17 21:00 09/24/17 21:10 (Milk Of Magnesia Liq) 30 ml HS PO 09/22/17 21:00 09/24/17 21:10 (Colace) 100 mg BID PO 09/22/17 13:30 09/25/17 09:00 (Catapres) 0.1 mg Q8HR PRN PO 09/23/17 15:00 (Ativan) 1.5 mg Q8HR PO 09/24/17 14:00 09/25/17 06:00 (Remeron) 30 mg HS PO 09/24/17 21:00 09/24/17 21:09 (Atarax) 50 mg Q6H PRN PO 09/24/17 11:45 Family Psych History See above Social History See above Patient's Strengths (min. 2) In a monitored setting. Verbally fluent. Physical Exam Physical exam completed by hospitalist medical record consultant. On my examination today, the patient appears to be in no acute physical distress. She does have the lesions on her hands as noted above. She is somewhat restless and psychomotor agitated. Labs and vitals reviewed: Vital Signs Vital Signs Date Time Temp Pulse Resp B/P (MAP) Pulse Ox O2 Delivery O2 Flow Rate FiO2 09/25/17 05:40 97.6 75 15 93/55 (68) 09/24/17 18:00 97 09/21/17 11:14 Room Air I/O 09/25/17 09/25/17 09/26/17 08:00 16:00 00:00 Intake Total 0 ml Balance 0 ml Lab Results Item Value Date Time White Blood Count 5.8 TH/MM3 09/23/17 1330 Hemoglobin 15.2 GM/DL 09/23/17 1330 Platelet Count 192 TH/MM3 09/23/17 1330 Sodium Level 141 MEQ/L 09/23/17 1330 Potassium Level 4.1 MEQ/L 09/23/17 1330 Chloride Level 107 MEQ/L 09/23/17 1330 Carbon Dioxide Level 24.1 MEQ/L 09/23/17 1330 Blood Urea Nitrogen 22 MG/DL H # 09/23/17 1330 Creatinine 0.79 MG/DL 09/23/17 1330 Random Glucose 108 MG/DL H 09/23/17 1330 Thyroid Stimulating Hormone 3rd Gen 2.880 uIU/ML 09/21/17 0845 Aspartate Amino Transf (AST/SGOT) 34 U/L 09/21/17 0845 Alanine Aminotransferase (ALT/SGPT) 24 U/L 09/21/17 0845 Alkaline Phosphatase 89 U/L 09/21/17 0845 Urine Opiates Screen NEG 09/21/17 0950 Urine Barbiturates Screen NEG 09/21/17 0950 Urine Amphetamines Screen NEG 09/21/17 0950 Urine Benzodiazepines Screen NEG 09/21/17 0950 Urine Cocaine Screen NEG 09/21/17 0950 Urine Cannabinoids Screen NEG 09/21/17 0950 Mental Status Examination Appearance: Disheveled Consciousness: Alert Orientation: Person, Place, Date/Time Motor Activity: Other (somewhat psychomotor agitated and restless) Speech: Slow, Other (soft) Language: Adequate Fund of Knowledge: Adequate Attention and Concentration: Easily Distracted Memory: Impaired (not formally assessed but seems impaired on clinical exam.) Mood: Other ("scared") Affect: Anxious, Other (dysphoric) Thought Process & Associations: Circumstantial Thought Content: Delusional, Other (perseverative on delusional themes) Hallucination Type: None Delusion Type: Other (ego-syntonic delusions of ruin, somatic preoccupation) Suicidal Ideation: No Suicidal Plan: No Suicidal Intention: No Homicidal Ideation: No Homicidal Plan: No Homicidal Intention: No Insight: Poor Judgment: Poor Assessment & Plan Problem List: (1) Major depressive disorder, recurrent episode with mood-congruent psychotic features ICD Codes: F33.3 - Major depressive disorder, recurrent, severe with psychotic symptoms Assessment & Plan The form of patient's current illness is consistent with a major depressive episode, severe, with psychotic features. The patient has apparently experienced significant weight loss during this episode. She elaborates ego- syntonic, incorrigible ideation of ruin and exhibits a somatic preoccupation as can often be seen in psychotic major depression. I note that she is presently being treated with antidepressant and antipsychotic, although these apparently have been of little benefit. Chart review indicates a history of positive response to ECT. ECT is indicated for the treatment of psychotic major depression, and given the severity of patient's current symptoms as well as the concern for significant weight loss associated with depressive episode, it is my opinion that it is appropriate to pursue ECT treatment at this time. I have completed the second opinion paperwork for extraordinary treatment with ECT. I defer further care of this patient to Dr. Kat. Thank you very much for this consultation. Signing off. Discharge Planning Per Dr. Kat. Jason Gomez MD Sep 25, 2017 13:00
[2017-09-25 18:43] VITALS: BP 130/73; PULSE 71; RESP 16; TEMP 98; O2SAT 98
[2017-09-25 20:21] VITALS: BP 130/73; PULSE 71; RESP 16; TEMP 98; O2SAT 98
[2017-09-25] MEDS: MAGNESIUM HYDROXIDE SUSP 30 ML CUP PO SCH (22:00)
[2017-09-25] MEDS: MIRTAZAPINE 15 MG TAB PO SCH (22:00)
[2017-09-25] MEDS: QUEtiapine FUMARATE 100 MG TAB PO SCH (22:00)
[2017-09-26 05:11] VITALS: BP 126/61; PULSE 74; RESP 15; TEMP 97.4; O2SAT 100
[2017-09-26] MEDS: LORazepam 1 MG TAB PO SCH ×3 (06:23→21:46)
[2017-09-26] MEDS: DOCUSATE SODIUM 100 MG CAP PO SCH ×2 (09:29→20:08)
--- NOTE | 2017-09-26 09:40 | HHI.PYPN ---
Subjective Remarks Patient seen today in her room with floor staff, patient initially was walking to her bed is dressed in slacks and a short-sleeved blouse, is sitting on the edge of the bed. Patient continues very soft-spoken with poor eye contact. Chart has been reviewed, she is compliant with the medication. Continues delusional now feels she is being monitored by cameras in her room. She continues vigilant. She continues somewhat confused especially related to the behaviors leading to this hospitalization. Patient is scheduled for [employer] [facility] tomorrow. We have also initiated request for permission to explore ECT. I have done the first opinion petition for that Dr. Jason Gomez has done the second opinion petition for that procedure. Patient does show some mild increase in affect. Still remains depressed and psychotic. Review of Systems Except as stated in HPI: all other systems reviewed are Neg Mental Status Examination Appearance: Disheveled Consciousness: Alert Orientation: Person, Place, Date/Time Motor Activity: Other (somewhat psychomotor agitated and restless) Speech: Slow, Other (soft) Language: Adequate Fund of Knowledge: Adequate Attention and Concentration: Easily Distracted Memory: Impaired (not formally assessed but seems impaired on clinical exam.) Mood: Other ("scared") Affect: Anxious, Other (dysphoric) Thought Process & Associations: Circumstantial Thought Content: Delusional, Other (perseverative on delusional themes) Hallucination Type: None Delusion Type: Other (ego-syntonic delusions of ruin, somatic preoccupation) Suicidal Ideation: No Suicidal Plan: No Suicidal Intention: No Homicidal Ideation: No Homicidal Plan: No Homicidal Intention: No Insight: Poor Judgment: Poor Results Vitals/IOs Vital Signs Date Time Temp Pulse Resp B/P (MAP) Pulse Ox O2 Delivery O2 Flow Rate FiO2 09/26/17 05:11 97.4 74 15 126/61 (82) 100 Intake and Output 09/26/17 09/26/17 09/27/17 08:00 16:00 00:00 Intake Total 0 ml Balance 0 ml Assessment & Plan Problem List: (1) Major depressive disorder, recurrent episode with mood-congruent psychotic features ICD Codes: F33.3 - Major depressive disorder, recurrent, severe with psychotic symptoms Assessment & Plan Estimated LOS: days patient scheduled for [employer] court tomorrow Justification for Cont. Inpt. At this time patient will decompensate if placed in the lower level of care Discharge Planning To be determined we continue to work with family related a possibility of exploring ECT Eriberto Kat MD Sep 26, 2017 09:40
--- NOTE | 2017-09-26 09:48 | HHI.PR ---
Subjective Remarks Patient seen and examined No acute event overnight Patient did interact more with Jean Carlos today and answered all questions appropriately. Objective Vitals Vital Signs Date Time Temp Pulse Resp B/P (MAP) Pulse Ox O2 Delivery O2 Flow Rate FiO2 09/26/17 05:11 97.4 74 15 126/61 (82) 100 09/25/17 20:21 98.0 71 16 130/73 (92) 98 09/25/17 18:43 98.0 71 16 130/73 (92) 98 I/O 09/25/17 09/25/17 09/25/17 09/26/17 09/26/17 09/26/17 07:00 15:00 23:00 07:00 15:00 23:00 Intake Total 0 ml 480 ml 480 ml 480 ml Balance 0 ml 480 ml 480 ml 480 ml Intake Oral 0 ml 480 ml 480 ml 480 ml # Voids 2 3 Result Diagram: 09/23/17 1330 09/23/17 1330 Objective Remarks GENERAL: NAD SKIN: Warm and dry. HEAD: Normocephalic. EYES: No scleral icterus. No injection or drainage. NECK: Supple, trachea midline. No JVD or lymphadenopathy. CARDIOVASCULAR: Regular rate and rhythm without murmurs, gallops, or rubs. RESPIRATORY: Breath sounds equal bilaterally. No accessory muscle use. GASTROINTESTINAL: Abdomen soft, non-tender, nondistended. MUSCULOSKELETAL: No cyanosis, or edema. BACK: Nontender without obvious deformity. No CVA tenderness. A/P Assessment and Plan 72-year-old female presenting with Depression - now appears paranoid management per psychiatry Poor by mouth intake/reported weight loss. 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 continue to monitor for now clonidine prn if SBP >170 Leukopenia - improved DVT prophylaxis: Encourage ambulation Patient is medically clear for discharge,[facility] will sign off and reconsult when necessary Devendra Colmenares MD Sep 26, 2017 09:48
[2017-09-26 18:22] VITALS: BP 115/65; PULSE 82; RESP 16; TEMP 98.4; O2SAT 96
[2017-09-26] MEDS: MIRTAZAPINE 15 MG TAB PO SCH (20:08)
[2017-09-26] MEDS: QUEtiapine FUMARATE 100 MG TAB PO SCH (20:08)
[2017-09-26] MEDS: MAGNESIUM HYDROXIDE SUSP 30 ML CUP PO SCH (20:08)
[2017-09-27] MEDS: LORazepam 1 MG TAB PO SCH ×2 (06:00→13:48)
[2017-09-27 06:28] VITALS: BP 136/73; PULSE 71; RESP 16; TEMP 97.9; O2SAT 96
[2017-09-27] MEDS: DOCUSATE SODIUM 100 MG CAP PO SCH (08:14)
--- NOTE | 2017-09-27 10:16 | HHI.PYPN ---
Subjective Remarks Patient seen in [place] with her , patient retained by Cigarette Roller Anselmo , to be guardian advocate. Following that hearing the was another [place] hearing for this patient related to permission for ECT. Cigarette Roller Anselmo also signed giving permission for her to approve of ECT treatment. Patient was present throughout the sessions. She continue markedly paranoid vigilant with delayed responses showing no significant insight into her illness, there also continues a degree of hopelessness and anhedonia and melancholy at. For now we will add risperdasl 0.5 mg twice a day to regimen, although with permission of guardian advocate Review of Systems Except as stated in HPI: all other systems reviewed are Neg Mental Status Examination Appearance: Disheveled Consciousness: Alert Orientation: Person, Place, Date/Time Motor Activity: Other (somewhat psychomotor agitated and restless) Speech: Slow, Other (soft) Language: Adequate Fund of Knowledge: Adequate Attention and Concentration: Easily Distracted Memory: Impaired (not formally assessed but seems impaired on clinical exam.) Mood: Other ("scared") Affect: Anxious, Other (dysphoric) Thought Process & Associations: Circumstantial Thought Content: Delusional, Other (perseverative on delusional themes) Hallucination Type: None Delusion Type: Other (ego-syntonic delusions of ruin, somatic preoccupation) Suicidal Ideation: No Suicidal Plan: No Suicidal Intention: No Homicidal Ideation: No Homicidal Plan: No Homicidal Intention: No Insight: Poor Judgment: Poor Results Vitals/IOs Vital Signs Date Time Temp Pulse Resp B/P (MAP) Pulse Ox O2 Delivery O2 Flow Rate FiO2 09/27/17 06:28 97.9 71 16 136/73 (94) 96 Intake and Output 09/27/17 09/27/17 09/28/17 08:00 16:00 00:00 Intake Total 0 ml 0 ml Balance 0 ml 0 ml Assessment & Plan Problem List: (1) Major depressive disorder, recurrent episode with mood-congruent psychotic features ICD Codes: F33.3 - Major depressive disorder, recurrent, severe with psychotic symptoms Assessment & Plan Estimated LOS: days patient retained by Judge Briones with her to be guardian advocate, subsequent to that hearing was a hearing related to permission for ECT through the [place] act. There permission is given and the forms signed by Judge Briones. Patient showed continue depression with psychosis. Will add risperdal 0.5 mg twice a day to regimen Justification for Cont. Inpt. At this time patient will decompensate if placed in the lower level of care Discharge Planning Continue to work with treatment team and patient's to explore possibility of transfer to a facility patient may receive ECT Request HC Surrog/Guard Advoc?: Yes Eriberto Kat MD Sep 27, 2017 10:16
--- NOTE | 2017-09-27 10:47 | HHI.PR ---
Subjective Remarks Follow-up for medical management Patient very anxious and did not want to give me much of a history. She station no complaints. Her and her good friend who is a web portal developer is at the bedside during the interview. They had no medical complaints. Objective Vitals Vital Signs Date Time Temp Pulse Resp B/P (MAP) Pulse Ox O2 Delivery O2 Flow Rate FiO2 09/27/17 06:28 97.9 71 16 136/73 (94) 96 09/26/17 18:22 98.4 82 16 115/65 (82) 96 I/O 09/26/17 09/26/17 09/26/17 09/27/17 09/27/17 09/27/17 06:59 14:59 22:59 06:59 14:59 22:59 Intake Total 480 ml 720 ml 360 ml 0 ml Balance 480 ml 720 ml 360 ml 0 ml Intake Oral 480 ml 720 ml 360 ml 0 ml # Voids 3 2 2 Result Diagram: 09/23/17 1330 09/23/17 1330 Objective Remarks GENERAL: Very thin fragile female in no acute distress. CARDIOVASCULAR: Regular rate and rhythm without murmurs, gallops, or rubs. RESPIRATORY: Breath sounds equal bilaterally. No accessory muscle use. GASTROINTESTINAL: Abdomen soft, non-tender, nondistended. MUSCULOSKELETAL: No cyanosis, or edema. BACK: Nontender without obvious deformity. No CVA tenderness. Medications and IVs Current Medications Lorazepam (Ativan) 1 mg Q6H PRN PO MODERATE TO SEVERE ANXIETY; Start 09/21/17 at 10:00 Lorazepam (Ativan Inj) 1 mg Q6H PRN IM MODERATE TO SEVERE ANXIETY; Start at 10:00 Acetaminophen (Tylenol) 650 mg Q4H PRN PO Pain 1-5 or Temp >101F; Start at 10:00 Magnesium Hydroxide (Milk Of Magnesia Liq) 30 ml DAILY PRN PO CONSTIPATION Last administered on 09/21/17at 21:26; Start 09/21/17 at 10:00; Stop 09/22/17 at 13:32; Status DC Al Hydrox/Mg Hydrox/Simethicone (Mag-Al Plus Susp Liq) 30 ml Q6H PRN PO DYSPEPSIA; Start 09/21/17 at 10:00 Mirtazapine (Remeron) 15 mg HS PO Last administered on 09/23/17at 21:00; Start 09/21/17 at 21:00; Stop 09/24/17 at 11:40; Status DC Quetiapine Fumarate (SEROquel) 100 mg HS PO Last administered on 09/26/17at 20: 08; Start 09/21/17 at 21:00 Potassium Chloride (KCl) 20 meq ONCE ONCE PO Last administered on 09/21/17at 18 :24; Start 09/21/17 at 15:30; Stop 09/21/17 at 15:34; Status DC Potassium Chloride (KCl) 20 meq ONCE ONCE PO Last administered on 09/22/17at 13 :30; Start 09/22/17 at 13:30; Stop 09/22/17 at 14:21; Status DC Magnesium Hydroxide (Milk Of Magnesia Liq) 30 ml HS PO Last administered on at 20:08; Start 09/22/17 at 21:00 Docusate Sodium (Colace) 100 mg BID PO Last administered on 09/27/17at 08:14; Start 09/22/17 at 13:30 Lorazepam (Ativan Inj) 1 mg ONCE ONCE IM Last administered on 09/23/17at 12:45 ; Start 09/23/17 at 13:00; Stop 09/23/17 at 13:01; Status DC Clonidine (Catapres) 0.1 mg Q8HR PRN PO SBP > 170; Start 09/23/17 at 15:00 Lorazepam (Ativan) 1 mg Q8HR PO Last administered on 09/24/17at 06:00; Start at 22:00; Stop 09/24/17 at 11:40; Status DC Lorazepam (Ativan) 1.5 mg Q8HR PO Last administered on 09/27/17at 06:00; Start 09/24/17 at 14:00 Mirtazapine (Remeron) 30 mg HS PO Last administered on 09/26/17at 20:08; Start 09/24/17 at 21:00 Hydroxyzine HCl (Atarax) 50 mg Q6H PRN PO ANXIETY; Start 09/24/17 at 11:45 Risperidone (risperDAL) 0.5 mg BID PO ; Start 09/27/17 at 21:00; Status UNV A/P Assessment and Plan 72-year-old female presenting with Depression with psychosis management per psychiatry Poor by mouth intake/reported weight loss. Chronic abdominal pain- agent denies any abdominal pain with me. Raisin Washer ff TSH normal Ensure tid Hypokalemia - resolved History of Left breast cancer s/p lumpectomy 1991 OP Mammogram ff up Hypertension- by history- no meds-. Throughout her hospital course she has been normotensive with occasional elevated blood pressure which most likely due to agitation. clonidine prn if SBP >170 Leukopenia - improved DVT prophylaxis: Encourage ambulation Kirsty Cabrera MD Sep 27, 2017 10:47
[2017-09-27] MEDS ORDERED: MIRTA15 PO (14:07)
[2017-09-27] MEDS ORDERED: QUET1TAB8 PO (14:07)
[2017-09-27] MEDS ORDERED: LORA-474 PO (14:07)
[2017-09-27] MEDS ORDERED: RISP0.5T25 PO (14:07)
[2017-09-27] MEDS ORDERED: DOCU1CAP39 PO (14:07)
--- NOTE | 2017-09-27 14:15 | PD.TTN ---
Patient Problems 1. Discharge planning 2. Medication compliance 3. Knowledge deficit 4. Lack of coping skills Progress Toward Goals Provider Present: Dr. Fabiano Gomez Provider Input: 09/24/17 patient is still getting med adjustment, possibly needs ECT, starting petitions Psychiatric Counselors Present: Rosmery Mendoza LCSW Psych Therapist Input: 09/24/17 patient is very depressed, anxious and psychotic Group Spec/RT/OT/CHAND Present: Elliott Lawson OT Group Spec/RT/OT/CHAND Input: very confused and not attending any gruops, Rosmery Heath LCSW Sep 27, 2017 14:15
--- NOTE | 2017-09-27 14:23 | HHI.DS ---
Psychiatry Discharge Summary Inpatient Psychiatric care?: Yes Advance Directive: No Reason Not Provided: Provided information to patient Mental Health AdvanceDirective: No Health Care Proxy: No Admission Admission Date Sep 21, 2017 at 09:57 Admission Diagnosis: (1) Major depressive disorder, recurrent episode with mood-congruent psychotic features ICD Code: F33.3 - Major depressive disorder, recurrent, severe with psychotic symptoms Brief History From Dr. Frederick's H&P: 72-year-old female [place] by this physician with obvious major depression and psychotic features. Patient is to a former magistrate judge who administered [place] act hearings at this hospital for a number of years. He is aware of the patient's condition as they have been for 48 years and she required ECT approximately 25 years ago. Currently, the patient has experienced a 40 pound weight loss, is delusional and believes they have no money, no Medicare and someone has hacked their computer system. She does not eat food very well and does not drink much liquid. In addition to a markedly depressed mood, she has anxiety, anhedonia, social withdrawal, poverty of speech, insomnia, loss of appetite, concentration difficulty, etc. She is somewhat oppositional as a result of her depression with psychotic features and has even been described as approaching catatonia. She does not have a history of alcoholism or substance abuse. She has had multiple stressors in the last year, including a major depressive event with her daughter and the loss of her brother, while he resided in a homeless longterm. On my examination today, 09/25: Patient seen and examined with nurse. Chart reviewed. I see appended to the paper chart a letter from patient's detailing patient's recent illness course. I also note a request for records from a hospital in [place], although these records are not presently available for my review. Case discussed with nursing staff. On my examination today, patient presents as dysphoric, fretful and delusional. She appears to be consumed by ego-syntonic delusions of financial ruin. She believes for example, and without evidence, that her insurance has been cancelled and that her financial materials were "hacked" and so she is now destitute. She exhibits a preoccupation with cleanliness and believes that she is in some way unclean. The nurse brings to my attention that the patient has been wringing her hands so frequently to try to wipe off this uncleanness that she has caused sores to form on her hands. She seems to exhibit a somatic preoccupation more generally, and in particular is overly concerned about the function or lack thereof of her bowels. She is worried that her is planning to divorce her. Nurse reports that there were several medical emergencies involving other patients on the unit over the weekend, and patient is convinced that she is to blame for these. Mood is "scared," and affect is quite anxious and dysphoric. Sleep and appetite are poor, and I note that she has reportedly had a significant weight loss of late. She is anhedonic. No hypomanic/manic symptoms noted. No AVH. No SI/HI voiced. Remainder of the psychiatric ROS is negative. Past psychiatric history: The patient reports a history of major depressive disorder. She follows psychiatrically with a Dr. Breen. She has received ECT treatments in the past, although she cannot recall the number or how long ago these were done. She apparently most recently was prescribed Effexor. She is unable in her present state to describe previous medication trials when asked. She was psychiatrically admitted most recently at a facility in [place]. She endorses a history of previous suicide attempts by overdose and also by placing her head in a gas oven. Family history: Patient reports that her mother completed suicide. Chemical dependency history: The patient reports that she has a history of social drinking. She denies any heavier drinking or other substance use. Social history: Patient is with 2 daughters. She is college educated. 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 She denies any or legal history. She denies any access to guns or firearms. Tobacco Use In Past 30 Days: No Tobacco Past 30 Days Alcohol Use: Monthly or Less Hospital Course Patient showed significant depression anhedonia melancholy a through the hospitalization along with significant paranoid delusions and psychosis. Patient showed reluctant compliance with medication. There was multiple conversations with patient's . He was in agreement with the recommendations for ECT. Patient was seen in [place] today he was retained by Judge Briones with her Judge Yoel mallory Junior being appointed as guardian advocate. Following that hearing hearing was held related to our recommendations for ECT. Judge Briones also agreed to the necessity and gave approval for the use of ECT with steve mallory being the guardian advocate for that also. There is been communication with [facility] for transfer there admission to their psychiatric unit for evaluation for possible ECT treatment. I am awaiting a call from Dr. billings for transfer. All other forms requirements appear to been satisfied. I have written discharge orders for that transfer. Also written the 1 month supply of her schedule medications to be taken with her to that facility Results Blood Pressure 136 / 73 Vital Signs Date Time Temp Pulse Resp B/P (MAP) Pulse Ox O2 Delivery O2 Flow Rate FiO2 09/27/17 06:28 97.9 71 16 136/73 (94) 96 Urine toxicology negative Summary of Procedures None done Pending results at discharge: No Medications # of Antipsychotic meds at D/C: 1 Approp Antipsych med options 1 - Minimum of three failed multiple trials of monotherapy. 2 - Documented plan to taper to monotherapy due to previous use of multiple meds OR cross-taper in progress at D/C. 3 - Documentation of augmentation of Clozapine. 4 - Justification other than those listed in allowable values 1-3, document here : Discharge Discharge Date: Sep 27, 2017 Discharge Diagnosis: (1) Major depressive disorder, recurrent episode with mood-congruent psychotic features Diagnosis: Principal ICD Code: F33.3 - Major depressive disorder, recurrent, severe with psychotic symptoms Pt Condition on Discharge: Stable Discharge Disposition: Trnsfr to Other Facility Discharge Instructions Diet Instructions: As Tolerated, No Restrictions Activities you can perform: Regular-No Restrictions Scheduled Appointment: transfer to [facility] inpatient unit for assessment for ECT treatment Discharge Time > 30 minutes Mental Status Examination Appearance: Disheveled Consciousness: Alert Orientation: Person, Place, Date/Time Motor Activity: Other (somewhat psychomotor agitated and restless) Speech: Slow, Other (soft) Language: Adequate Fund of Knowledge: Adequate Attention and Concentration: Easily Distracted Memory: Impaired (not formally assessed but seems impaired on clinical exam.) Mood: Other ("scared") Affect: Anxious, Other (dysphoric) Thought Process & Associations: Circumstantial Thought Content: Delusional, Other (perseverative on delusional themes) Hallucination Type: None Delusion Type: Other (ego-syntonic delusions of ruin, somatic preoccupation) Suicidal Ideation: No Suicidal Plan: No Suicidal Intention: No Homicidal Ideation: No Homicidal Plan: No Homicidal Intention: No Insight: Poor Judgment: Poor Discharge/Advance Care Plan Health Problems: (1) Major depressive disorder, recurrent episode with mood-congruent psychotic features Goals to promote your health * To prevent worsening of your condition and complications * To maintain your health at the optimal level Directions to meet your goals Take your medications as prescribed Follow your dietary instruction Follow activity as directed Keep your appointments as scheduled Take your immunizations and boosters as scheduled If your symptoms worsen call your PCP, if no PCP go to Urgent Care Center or Emergency Room For 02/04 questions related to your inpatient stay or results of tests pending at discharge, please contact Dr. Eriberto Kat at Smoking is Dangerous to Your Health. Avoid second hand smoking Eriberto Kat MD Sep 27, 2017 14:23
[2017-09-27] MEDS ORDERED: risperiDONE 0.5 MG TAB PO SCH (21:00)
== END 2017-09-27 17:00 | DRG 885 ==
LOC: NEPE 08:02 → NEDA 09:57 → H4EA 13:30
PROVIDERS: ADMIT Psychiatry & Neurology Psychiatry; ATTEND Psychiatry & Neurology Psychiatry
DX: F33.3 Major depressive disorder, recurrent, severe with psychotic symptoms (principal); E46 Unspecified protein-calorie malnutrition; E87.6 Hypokalemia; F41.9 Anxiety disorder, unspecified; G47.00 Insomnia, unspecified; K59.00 Constipation, unspecified; Z85.3 Personal history of malignant neoplasm of breast; Z87.891 Personal history of nicotine dependence; Z91.5 Personal history of self-harm; G89.29 Other chronic pain; R10.9 Unspecified abdominal pain; D72.819 Decreased white blood cell count, unspecified
CPT/HCPCS: 80048; 80053; 80307; 81001; 84443; 85025; 85027; 93005; 99285; J2060